=== PATIENT | female | born 1950 | race Caucasian/White ===

== ENCOUNTER → 2016-10-01 | Outpatient (CLI) | payer OTHER | LOC: FIMAGING 15:15 | PROVIDERS: ATTEND Internal Medicine | DX: Z12.31 Encounter for screening mammogram for malignant neoplasm of breast (principal); Z80.3 Family history of malignant neoplasm of breast | CPT/HCPCS: G0202 ==

== ENCOUNTER → 2017-04-14 | Outpatient (CLI) | payer OTHER | LOC: FIMAGING 14:18 | PROVIDERS: ATTEND Orthopaedic Surgery | DX: Z01.818 Encounter for other preprocedural examination (principal); M17.12 Unilateral primary osteoarthritis, left knee ==

== ENCOUNTER 2017-04-15 07:54 | Observation (INO) | payer OTHER ==
[~2017-04-15 07:54] MED LIST: ROPIVACAINE 0.2% 80 MG, EPINEPHrine 0.2 MG, KETOROLAC TROMETHAMINE 30 MG in SYRINGE 0 ML IU ONE; TRANEXAMIC ACID 3,000 MG in NS 50 ML IRR ONE
[2017-04-15] MEDS ORDERED: ceFAZolin 2 GM/SWFI 2 GM/20 ML SYR IVP ONE (08:31)
[2017-04-15] MEDS ORDERED: ACETAMINOPHEN 325 MG TAB PO ONE (08:31)
[2017-04-15] MEDS ORDERED: FAMOTIDINE 20 MG TAB PO ONE (08:31)
[2017-04-15] MEDS ORDERED: DEXAMETHASONE 4 MG/ML VIAL IVP ONE (08:31)
[2017-04-15] MEDS ORDERED: LR 1,000 ML IV ONE (08:45)
[2017-04-15] MEDS ORDERED: LIDOCAINE 1% 2 ML INJ ID PRN (08:45)
[2017-04-15] MEDS ORDERED: VANCOMYCIN 1 GM VIAL ONE (08:58)
[2017-04-15] MEDS ORDERED: TRANEXAMIC ACID 3,000 MG/50 ML BAG IRR ONE (08:58)
--- NOTE | 2017-04-15 09:24 | PDHPUP ---
History & Physical Update H&P update statement: This history and physical update is based on an assessment of the patient which was completed after admission or registration (within 24 hours), but prior to the surgery/procedure. H&P update: H&P reviewed & patient examined, no change in patient's condition since H&P completed
[2017-04-15] MEDS ORDERED: MIDAZOLAM 2 MG/2 ML VIAL IVP ONE (09:59)
[2017-04-15] MEDS ORDERED: MIDAZOLAM 2 MG/2 ML VIAL ONE (10:00)
--- NOTE | 2017-04-15 10:00 | PDANEPAE ---
ANE History of Present Illness l knee oa ANE Past Medical History - Cardiovascular History Hx Hypertension: No Hx Arrhythmias: No Hx Chest Pain: No Hx Coronary Artery / Peripheral Vascular Disease: No Hx CHF / Valvular Disease: No Hx Palpitations: No Cardiovascular History Comment: hyperlipidemia. cardiac cath d/t chest pain that proved to be normal- pain was from lifting hay bails - Pulmonary History Hx COPD: No Hx Asthma/Reactive Airway Disease: No Hx Recent Upper Respiratory Infection: No Hx Oxygen in Use at Home: No Hx Sleep Apnea: No Sleep Apnea Screening Result - Last Documented: Negative - Neurologic History Hx Cerebrovascular Accident: No Hx Seizures: No Hx Dementia: No Neurologic History Comment: hx of spinal fusion - Endocrine History Hx Diabetes: No Hypothyroid: Yes Endocrine History Comment: hypothyroidism started on synthroid 6 weeks ago - Renal History Hx Renal Disorders: No - Liver History Hx Hepatic Disorders: No - Neurological & Psychiatric Hx Hx Neurological and Psychiatric Disorders: Yes Neurological / Psychiatric History Comment: depression - Cancer History Hx Cancer: Yes Cancer History Comment: skin- basal cell - Congenital Disorder History Hx Congenital Disorders: No - GI History Hx Gastrointestinal Disorders: Yes Gastrointestinal History Comment: reflux- takes omeprazole at night - Other Health History Other Health History: wears glasses. wears bilateral hearing aides. osteoarthritis in all joints - Chronic Pain History Chronic Pain: Yes (bilateral knees) - Surgical History Prior Surgeries: bilateral RTC repairs. spinal fusion l4-5, s1. appy and emily. bilateral cataracts. cardiac cath- with normal results. hysterectomy. t&a. rhinoplasty at 18 yo ANE Review of Systems Review of Systems: - Exercise capacity METS (RN): 4 METS ANE Patient History - Allergies Allergies/Adverse Reactions: latex [Latex] Allergy (Mild, Verified 04/15/17 09:36) Rash - Home Medications Home Medications: Atorvastatin Calcium [Lipitor 20 mg (*)] 20 mg PO HS 03/09/17 [Last Taken 21:00] FLUoxetine [Prozac 20 MG (*)] 20 mg PO HS 03/09/17 [Last Taken 04/14/17 21:00] Levothyroxine [Synthroid 25 mcg (*)] 25 mcg PO DAILY06 03/09/17 [Last Taken 21:00] Omeprazole [Prilosec 20 mg] 20 mg PO HS 03/09/17 [Last Taken 04/14/17 21:00] celeCOXIB [Celebrex (*)] 200 mg PO DAILY 03/09/17 [Last Taken 04/14/17 21:00] - NPO status NPO Status: no food or drink >8 hours NPO Since - Liquids (Date): 04/15/17 NPO Since - Liquids (Time): 06:00 NPO Since - Solids (Date): 04/14/17 NPO Since - Solids (Time): 20:30 - Smoking Hx Smoking Status: Former smoker - Family Anes Hx Family Hx Anesthesia Complications: none ANE Labs/Vital Signs - Vital Signs Vital Signs: reviewed preoperatively; see RN documention for details Blood Pressure: 134/65 Heart Rate: 66 Respiratory Rate: 14 O2 Sat (%): 92 Height: 175.26 cm Weight: 90.718 kg ANE Physical Exam - Airway Neck exam: FROM Mallampati Score: Class 2 Mouth exam: normal dental/mouth exam - Pulmonary Pulmonary: no respiratory distress - Cardiovascular Cardiovascular: regular rate and rhythym - ASA Status ASA Status: II ANE Anesthesia Plan Anesthesia Plan: GA w LMA, spinal Regional Anesthesia: adductor canal FNB
[2017-04-15] MEDS ORDERED: PROPOFOL/EMULSION 500 MG/50 ML BOTTLE IV ONE (10:09)
[2017-04-15] MEDS ORDERED: ONDANSETRON 4 MG/2 ML VIAL ONE (10:11)
[2017-04-15] MEDS ORDERED: ROPIVACAINE HCL 150 MG/30 ML INJ ONE (10:11)
[2017-04-15] MEDS ORDERED: DEXAMETHASONE 4 MG/ML VIAL ONE (10:11)
[2017-04-15] MEDS ORDERED: HYDROmorphONE/DILAUDID 1 MG/ML INJ IVP PRN (10:45)
[2017-04-15] MEDS ORDERED: DEXAMETHASONE 4 MG/ML VIAL IVP PRN (10:45)
[2017-04-15] MEDS ORDERED: ONDANSETRON 4 MG/2 ML VIAL IVP PRN ×2 (10:45→11:33)
[2017-04-15] MEDS ORDERED: NALOXONE HCL 0.4 MG/ML INJ IVP PRN (10:45)
[2017-04-15] MEDS ORDERED: fentaNYL 100 MCG/2 ML INJ IVP PRN (10:45)
[2017-04-15] MEDS ORDERED: ONDANSETRON DISINTEGRATING 4 MG TAB PO PRN (11:33)
[2017-04-15] MEDS ORDERED: CYCLOBENZAPRINE 10 MG TAB PO PRN (11:33)
[2017-04-15] MEDS ORDERED: LACTULOSE 20 GM/30 ML UDCUP PO PRN (11:33)
[2017-04-15] MEDS ORDERED: diphenhydrAMINE 25 MG CAP PO PRN (11:33)
[2017-04-15] MEDS ORDERED: METOCLOPRAMIDE 10 MG/2 ML VIAL IVP PRN (11:33)
[2017-04-15] MEDS ORDERED: PROMETHAZINE HCL 25 MG/ML INJ IVP PRN (11:33)
[2017-04-15] MEDS ORDERED: TEMAZEPAM 15 MG CAP PO PRN (11:33)
[2017-04-15] MEDS ORDERED: PROMETHAZINE HCL 25 MG SUPPR PR PRN (11:33)
[2017-04-15] MEDS ORDERED: POLYETHYLENE GLYCOL 3350 17 GM PKT PO PRN (11:33)
[2017-04-15] MEDS ORDERED: DIPHENOXYLATE/ATROPINE LOMOTIL 1 TAB PO PRN (11:33)
[2017-04-15] MEDS ORDERED: BISACODYL 10 MG SUPP PR PRN (11:33)
[2017-04-15] MEDS ORDERED: MAGNESIUM HYDROXIDE 30 ML UDCUP PO PRN (11:33)
--- NOTE | 2017-04-15 11:34 | POSTOPPROG ---
Post Op Note Date of Operation: 04/15/17 Surgeon: Yuliya Jose Loan Approver: poonam jose Anesthesiologist: dr. regalado Anesthesia: Spinal, Other (Specify) (adductor canal block) Pre-op Diagnosis: L knee OA Post-op Diagnosis: same Indication: left knee pain due to OA that failed conservative measures Procedure: L TKA robot assisted Findings: severe knee OA Inf/Abcess present in the surg proc area at time of surgery?: No EBL: 50-100
--- NOTE | 2017-04-15 11:47 | POSTANESTH ---
Post Anesthetic Evaluation Cardiovascular Status: Normal, Stable Respiratory Status: Normal, Stable Level of Consciousness/Mental Status: Can Participate in Eval Pain Control: Adequate, Prn Tx Ordered Nausea/Vomiting Control: Adequate, Prn Tx Ordered Complications Possibly Related to Anesthesia: None Noted
[2017-04-15] MEDS ORDERED: LR 1,000 ML IV SCH (12:00)
[2017-04-15] MEDS: ACETAMINOPHEN 325 MG TAB PO SCH ×3 (14:26→22:26)
[2017-04-15] MEDS: ceFAZolin 2 GM/DEXTROSE 100 ML IV SCH (18:23)
[2017-04-15] MEDS: SENNOSIDES/DOCUSATE SODIUM TAB PO SCH (20:04)
[2017-04-15] MEDS: ASPIRIN 81 MG CHEWABLE TAB PO SCH (20:04)
[2017-04-15] MEDS: FAMOTIDINE 20 MG TAB PO SCH (20:06)
[2017-04-15] MEDS ORDERED: FLUoxetine 20 MG CAP PO SCH (21:00)
[2017-04-15] MEDS ORDERED: ATORVASTATIN CALCIUM 20 MG TAB PO SCH (21:00)
[2017-04-15] MEDS ORDERED: PANTOPRAZOLE SODIUM 40 MG TAB PO SCH (21:00)
[2017-04-15] MEDS ORDERED: NON-FORMULARY NEW DRUG (Omeprazole [Prilosec 20 Mg] 20 MG) PO SCH (21:00)
[2017-04-16] MEDS: ceFAZolin 2 GM/DEXTROSE 100 ML IV SCH (02:36)
--- NOTE | 2017-04-16 03:04 | GOP ---
[f rep st] OPERATIVE REPORT DATE OF OPERATION: 04/15/2017 SURGEON: Joss Schmid MD SOC ANALYST: YO Caldwell ANESTHESIA: Spinal. PREOPERATIVE DIAGNOSIS: Left knee osteoarthritis. POSTOPERATIVE DIAGNOSIS: Left knee osteoarthritis. PROCEDURE PERFORMED: Left total knee arthroplasty with computer navigation, robotic assist. FINDINGS: ESTIMATED BLOOD LOSS: 30 cc. INDICATIONS: The patient is a 66-year-old female with severe and progressive pain and deformity of the left knee unresponsive to conservative care. The risks and benefits of surgical intervention were explained in detail. DESCRIPTION OF PROCEDURE: The patient was brought to the operative room and placed on the table in the supine position. Spinal anesthesia was induced without difficulty. A pneumatic tourniquet was applied about the left proximal thigh, and the leg was prepped and draped in a sterile fashion. The leg orona was applied. After exsanguination by elevation the tourniquet was inflated to 275 mm of mercury. Incision was made anterior medial from the tibial tuberosity to a point 2 cm proximal to the superior pole of the patella. Medial parapatellar arthrotomy was carried out from the superior pole of the patella and posteriorly in line with the fibers of the Type II VMO. The medial collateral ligament was elevated and the infrapatellar fat pad was resected. The patella was everted and the articular surface was excised. A 32 mm patellar button was placed. Attention was turned first to the distal aspect of the left femur. At 3 cm proximal to the medial rise of the femur, 2 percutaneous half pins were placed for fixation of the femoral array. In a similar fashion, 2 pins were placed anteromedial on the tibia for fixation of the tibial array. External land marking and registration of the hip center was performed without difficulty. Internal femoral and tibial registration was carried out without difficulty and the femoral and tibial checkpoints were placed and verified for accuracy. Attention was turned to the femur. The foot print for the size 4 femoral component was cut with the saw using the [employer] robotic system and verified for accuracy against the CT based plan. In a similar fashion, saw was used to cut the footprint for the size 3 tibial component using the [employer] system and verified for accuracy against the CT based plan. The tibial articular surface was excised without difficulty, followed by the intercondylar box cut. The knee was extended and the remnants of the medial and lateral meniscus were excised. The posterior capsule was injected with ropivacaine, epinephrine and Toradol. A size3 tritanium tibial tray was positioned. Trial reduction was then carried out. There was excellent range of motion, alignment, and stability using the 9 mm polyethylene. All trials were then removed. The joint was thoroughly irrigated and carefully dried. The press fit components were implanted. The permanent 9 mm polyethylene was placed without difficulty. The tourniquet was deflated and all bleeders were coagulated. The wound was thoroughly irrigated and closed using interrupted sutures of 2-0 Vicryl for the joint capsule. The subcu was closed with 3-0 Vicryl and the skin with 4-0 Monocryl. Dermabond and Steri-Strips were applied followed by a compressive dressing. The patient was then moved from the operating room to the recovery room in good condition, having tolerated the procedure well. PATHOLOGY: Severe medial and patellofemoral osteoarthritis. /[id number]/MODL MTDD
[2017-04-16 04:55] VITALS: RESP 16
[2017-04-16] MEDS: ACETAMINOPHEN 325 MG TAB PO SCH (05:03)
[2017-04-16] MEDS: oxyCODONE IR 5 MG TAB PO PRN ×2 (05:52→09:01)
[2017-04-16] MEDS ORDERED: LEVOTHYROXINE 25 MCG TAB PO SCH (06:00)
[2017-04-16] MEDS: FAMOTIDINE 20 MG TAB PO SCH (08:07)
[2017-04-16] MEDS: ASPIRIN 81 MG CHEWABLE TAB PO SCH (08:07)
[2017-04-16] MEDS: SENNOSIDES/DOCUSATE SODIUM TAB PO SCH (08:08)
[2017-04-16 08:53] VITALS: BP 104/61; PULSE 70; TEMP 98; O2SAT 92
--- NOTE | 2017-04-16 10:12 | SOAPPROG ---
SOAP Progress Note Assessment/Plan: Assessment: Patient is doing well POD 1 s/p L TKA Pain management: pain is well controlled on oral pain meds. VTE ppx: recommend aspirin 81mg BID for 4 weeks, cont RIRI and SCDs Anemia: level is expected initially postop. Asymptomatic. Continue to monitor D/c planning: d/c to home today pending release from PT Plan: 04/16/17 10:11 Subjective: Shawnee is doing well today, denies SOB, chest pain and N/V. Objective: Vital Signs Temp Pulse Resp BP Pulse Ox 36.7 C 70 16 104/61 92 04/16/17 08:53 04/16/17 08:53 04/16/17 08:53 04/16/17 08:53 04/16/17 08:53 Laboratory Results 04/16/17 04:51 04/15/17 04/16/17 04/17/17 05:59 05:59 05:59 Intake Total 2200 Output Total 1280 Balance 920 LLE: incision dressing is clean and dry, NVI, +pf/df ICD10 Worksheet Patient Problems: Problems Problem Status Onset Primary localized osteoarthritis of left knee Acute
--- NOTE | 2017-04-16 13:16 | GDS ---
[f rep st] DISCHARGE SUMMARY ADMISSION DIAGNOSIS: Left knee osteoarthritis. DISCHARGE DIAGNOSIS: Left knee osteoarthritis. PROCEDURE: Left total knee arthroplasty, robot-assisted VTE PROPHYLAXIS: Aspirin 81 mg twice daily for 4 weeks recommended BRIEF DESCRIPTION OF HOSPITAL STAY: Patient was admitted for an elective joint arthroplasty. The pat ient tolerated the procedure well and has passed physical therapy. The patient was given appropriate antibiotic prophylaxis and venous thromboembolism prophylaxis. The patient's pain was well controlled on oral pain medication, patient was holding down food, and had urinated. Decision was made to disch arge the patient. The patient was given post-operative prescriptions pre-operatively. PLAN: Followup as scheduled April 30 at 11:15 a.m. /[id number]/MODL
--- NOTE | 2017-04-16 14:01 | ASDISCHSUM ---
Discharge Information Plan Status:Home with No Needs Medically Cleared to Leave: Discharge Date:04/16/2017 10:59 AM CM D/C Disposition:Home, Routine, Self-Care ADT D/C Disposition:Home, Routine, Self-Care Projected Discharge Date:04/16/2017 10:59 AM Transportation at D/C: Discharge Delay Reason: Follow-Up Date:04/16/2017 10:59 AM Discharge Slot: Final Diagnosis: Placement Information Patient Contact Information Contact Name:KARLY Relationship:Friend Address:[address] [place] [address] City:[place] [facility] Phone: [facility]/Zip Code:[place] [address] Email: Financial Information Financial Class:HMO and PPO Plans Primary Plan Desc:LIZETH ARANA PPO [employer] Primary Plan Number:[id number] Secondary Plan Desc: Secondary Plan Number: Assessment Information Intervention Information
== END 2017-04-16 10:59 | disposition home or self-care (01) ==
LOC: F3N 07:54 → INTOOBSV 07:54 → F3N 13:01
PROVIDERS: ADMIT Orthopaedic Surgery; ATTEND Orthopaedic Surgery
DX: M17.12 Unilateral primary osteoarthritis, left knee (principal); E78.5 Hyperlipidemia, unspecified; K21.9 Gastro-esophageal reflux disease without esophagitis; Z98.1 Arthrodesis status
CPT/HCPCS: 27447; 73560; 97110; 97116; 97161; 97165; 97530; G0378; G8978; G8979; G8980; J0171; J0690; J1100; J1885; J2250; J2405; J2704; J2795; J3370

== ENCOUNTER → 2017-07-13 | Outpatient (CLI) | payer OTHER | LOC: FIMAGING 12:46 | PROVIDERS: ATTEND Orthopaedic Surgery | DX: M17.11 Unilateral primary osteoarthritis, right knee (principal) ==

== ENCOUNTER 2017-07-22 10:56 | Observation (INO) | payer OTHER ==
[~2017-07-22 10:56] MED LIST changes: +BUPI/epINEPH/KETOROLAC IU ONE; +TRANEXAMIC ACID 3,000 MG in NS (SYRINGE) 50 ML IRR ONE; -TRANEXAMIC ACID 3,000 MG in NS 50 ML IRR ONE
[2017-07-22] MEDS ORDERED: ACETAMINOPHEN 325 MG TAB PO ONE (11:13)
[2017-07-22] MEDS ORDERED: ceFAZolin 2 GM/SWFI 2 GM/20 ML SYR IVP ONE (11:13)
[2017-07-22] MEDS ORDERED: FAMOTIDINE 20 MG TAB PO ONE (11:13)
[2017-07-22] MEDS ORDERED: DEXAMETHASONE 4 MG/ML VIAL IVP ONE (11:13)
[2017-07-22] MEDS ORDERED: LR 1,000 ML IV ONE (11:14)
[2017-07-22] MEDS ORDERED: LIDOCAINE 1% 2 ML INJ ID PRN (11:14)
[2017-07-22] MEDS ORDERED: MIDAZOLAM 2 MG/2 ML VIAL IVP ONE (12:36)
--- NOTE | 2017-07-22 12:37 | PDANEPAE ---
ANE History of Present Illness DJD R knee s/f R TKR china KARL Past Medical History - Cardiovascular History Hx Hypertension: No Hx Arrhythmias: No Hx Chest Pain: No Hx Coronary Artery / Peripheral Vascular Disease: No Hx CHF / Valvular Disease: No Hx Palpitations: No Cardiovascular History Comment: hyperlipidemia. cardiac cath d/t chest pain that proved to be normal- pain was from lifting hay bails 2011 - Pulmonary History Hx COPD: No Hx Asthma/Reactive Airway Disease: No Hx Recent Upper Respiratory Infection: No Hx Oxygen in Use at Home: No Hx Sleep Apnea: No Sleep Apnea Screening Result - Last Documented: Negative - Neurologic History Hx Cerebrovascular Accident: No Hx Seizures: No Hx Dementia: No Neurologic History Comment: hx of spinal fusion - Endocrine History Hx Diabetes: No Endocrine History Comment: hypothyroidism - Renal History Hx Renal Disorders: No - Liver History Hx Hepatic Disorders: No - Neurological & Psychiatric Hx Hx Neurological and Psychiatric Disorders: Yes Neurological / Psychiatric History Comment: depression - Cancer History Hx Cancer: Yes Cancer History Comment: skin - Congenital Disorder History Hx Congenital Disorders: No - GI History Hx Gastrointestinal Disorders: Yes Gastrointestinal History Comment: reflux- - Other Health History Other Health History: wears glasses. wears bilateral hearing aides. osteoarthritis in all joints - Chronic Pain History Chronic Pain: Yes (RT KNEE) - Surgical History Prior Surgeries: LT TOTAL KNEE 04/15/17. bilateral RTC repairs. spinal fusion l4-5, s1. appy and emily. bilateral cataracts. cardiac cath- with normal results. hysterectomy. t&a. rhinoplasty at 18 yo ANE Review of Systems Review of Systems: - Exercise capacity METS (RN): 4 METS ANE Patient History - Allergies Allergies/Adverse Reactions: latex [Latex] Allergy (Mild, Verified 04/15/17 09:36) Rash - Home Medications Home medications: home medication list seen and reviewed Home Medications: Atorvastatin Calcium [Lipitor 20 mg (*)] 20 mg PO HS 03/09/17 [Last Taken 23:00] FLUoxetine [Prozac 20 MG (*)] 20 mg PO HS 03/09/17 [Last Taken 07/21/17 23:00] Levothyroxine [Synthroid 25 mcg (*)] 25 mcg PO DAILY06 03/09/17 [Last Taken 09:30] Omeprazole [Prilosec 20 mg] 20 mg PO HS 03/09/17 [Last Taken 07/21/17 23:00] Acetaminophen [Tylenol 325mg (*)] 650 mg PO Q6HRS PRN 07/01/17 [Last Taken 07/20] Aspirin [Aspirin 81mg (*)] 81 mg PO HS 07/01/17 [Last Taken 07/18/17] Herbals/Supplements -Info Only 1 ea PO DAILY 07/01/17 [Last Taken 07/15/17] Multivitamins [Multivitamin (*)] 1 each PO DAILY 07/01/17 [Last Taken 07/15/17] - NPO status NPO Since - Liquids (Date): 07/22/17 NPO Since - Liquids (Time): 10:00 NPO Since - Solids (Date): 07/21/17 NPO Since - Solids (Time): 21:30 - Anes Hx Anes Hx: no prior problems - Smoking Hx Smoking Status: Former smoker - Alcohol Use Alcohol Use: Rarely - Family Anes Hx Family Anes Hx: none Family Hx Anesthesia Complications: none ANE Labs/Vital Signs - Vital Signs Blood Pressure: 162/99 Heart Rate: 79 Respiratory Rate: 16 O2 Sat (%): 94 Height: 173.99 cm Weight: 90.718 kg ANE Physical Exam - Airway Neck exam: FROM Mallampati Score: Class 2 Mouth exam: normal dental/mouth exam - Pulmonary Pulmonary: no respiratory distress - Cardiovascular Cardiovascular: regular rate and rhythym ANE Anesthesia Plan Anesthesia Plan: spinal Regional Anesthesia: adductor canal FNB
[2017-07-22] MEDS ORDERED: fentaNYL 100 MCG/2 ML INJ ONE (12:49)
[2017-07-22] MEDS ORDERED: PROPOFOL/EMULSION 500 MG/50 ML BOTTLE IV ONE (12:49)
[2017-07-22] MEDS ORDERED: DEXAMETHASONE 4 MG/ML VIAL ONE (12:51)
[2017-07-22] MEDS ORDERED: ONDANSETRON 4 MG/2 ML VIAL ONE (12:51)
[2017-07-22] MEDS ORDERED: POLYETHYLENE GLYCOL 3350 17 GM PKT PO PRN (13:26)
[2017-07-22] MEDS ORDERED: BISACODYL 10 MG SUPP PR PRN (13:26)
[2017-07-22] MEDS ORDERED: LACTULOSE 20 GM/30 ML UDCUP PO PRN (13:26)
[2017-07-22] MEDS ORDERED: CYCLOBENZAPRINE 10 MG TAB PO PRN (13:26)
[2017-07-22] MEDS ORDERED: PROMETHAZINE HCL 25 MG SUPPR PR PRN (13:26)
[2017-07-22] MEDS ORDERED: TEMAZEPAM 15 MG CAP PO PRN (13:26)
[2017-07-22] MEDS ORDERED: PROMETHAZINE HCL 25 MG/ML INJ IVP PRN ×2 (13:26→13:57)
[2017-07-22] MEDS ORDERED: ONDANSETRON DISINTEGRATING 4 MG TAB PO PRN (13:26)
[2017-07-22] MEDS ORDERED: diphenhydrAMINE 25 MG CAP PO PRN (13:26)
[2017-07-22] MEDS ORDERED: DIPHENOXYLATE/ATROPINE LOMOTIL 1 TAB PO PRN (13:26)
[2017-07-22] MEDS ORDERED: MAGNESIUM HYDROXIDE 30 ML UDCUP PO PRN (13:26)
[2017-07-22] MEDS ORDERED: ONDANSETRON 4 MG/2 ML VIAL IVP PRN ×2 (13:26→13:57)
[2017-07-22] MEDS ORDERED: LR 1,000 ML IV SCH (13:30)
[2017-07-22] MEDS ORDERED: PROPOFOL 200 MG/20 ML VIAL ONE (13:45)
[2017-07-22] MEDS ORDERED: METOCLOPRAMIDE 10 MG/2 ML VIAL IVP PRN (13:57)
[2017-07-22] MEDS ORDERED: oxyCODONE IR 5 MG TAB PO PRN (13:57)
[2017-07-22] MEDS ORDERED: PHENYLEPHRINE HCL 100 MCG/ML SYR IVP PRN (13:57)
[2017-07-22] MEDS ORDERED: ACETAMINOPHEN 500 MG TAB PO PRN (13:57)
[2017-07-22] MEDS ORDERED: MEPERIDINE 25 MG/ML SYR IVP PRN (13:57)
[2017-07-22] MEDS ORDERED: LR 500 ML IV PRN (13:57)
[2017-07-22] MEDS ORDERED: ALBUTEROL 3 ML DEYVIAL IH PRN (13:57)
[2017-07-22] MEDS ORDERED: DEXAMETHASONE 4 MG/ML VIAL IVP PRN (13:57)
[2017-07-22] MEDS ORDERED: HYDROCODONE/APAP 5/325 TAB PO PRN (13:57)
[2017-07-22] MEDS ORDERED: LABETALOL HCL 5 MG/ML 20 ML MDV IVP PRN (13:57)
[2017-07-22] MEDS ORDERED: NALOXONE HCL 0.4 MG/ML INJ IVP PRN (13:57)
[2017-07-22] MEDS ORDERED: fentaNYL 100 MCG/2 ML INJ IVP PRN (13:57)
[2017-07-22] MEDS ORDERED: ceFAZolin 2 GM/DEXTROSE 100 ML IV SCH (14:00)
--- NOTE | 2017-07-22 14:10 | POSTOPPROG ---
Post Op Note Date of Operation: 07/22/17 Surgeon: Yuliya Schmid Public Safety Dispatcher: Angie Schmid PAc Anesthesiologist: Mason Anesthesia: Spinal Pre-op Diagnosis: R knee DJD Post-op Diagnosis: same Indication: pain Procedure: R TKA with robotic assist and computer damián Findings: DJD knee Inf/Abcess present in the surg proc area at time of surgery?: No EBL: 50-100
--- NOTE | 2017-07-22 14:15 | POSTOPPROG ---
Post Op Note Date of Operation: 07/22/17 Surgeon: Yuliya Jose Jack Spooler Tender: poonam jose Anesthesiologist: dr. najera Anesthesia: Spinal, Other (Specify) (adductor canal block) Pre-op Diagnosis: right knee OA Post-op Diagnosis: same Indication: right knee pain Procedure: R TKA robot assisted Findings: severe knee OA Inf/Abcess present in the surg proc area at time of surgery?: No EBL: 50-100
[2017-07-22] MEDS: ACETAMINOPHEN 325 MG TAB PO SCH ×2 (18:40→23:39)
[2017-07-22] MEDS: ceFAZolin 2 GM/SWFI 2 GM/20 ML SYR IVP SCH (18:41)
[2017-07-22] MEDS: oxyCODONE IR 5 MG TAB PO PRN ×3 (18:41→23:39)
[2017-07-22] MEDS: SENNOSIDES/DOCUSATE SODIUM TAB PO SCH (20:13)
[2017-07-22] MEDS: ASPIRIN 81 MG CHEWABLE TAB PO SCH (20:13)
[2017-07-22] MEDS: FAMOTIDINE 20 MG TAB PO SCH (20:13)
[2017-07-22] MEDS ORDERED: PANTOPRAZOLE SODIUM 40 MG TAB PO SCH (21:00)
[2017-07-22] MEDS ORDERED: FLUoxetine 20 MG CAP PO SCH (21:00)
[2017-07-22] MEDS ORDERED: NON-FORMULARY NEW DRUG (Omeprazole [Prilosec 20 Mg] 20 MG) PO SCH (21:00)
[2017-07-22] MEDS ORDERED: ATORVASTATIN CALCIUM 20 MG TAB PO SCH (21:00)
[2017-07-23] MEDS: ceFAZolin 2 GM/SWFI 2 GM/20 ML SYR IVP SCH (03:36)
[2017-07-23] MEDS ORDERED: LEVOTHYROXINE 25 MCG TAB PO SCH (06:00)
[2017-07-23] MEDS: ACETAMINOPHEN 325 MG TAB PO SCH (06:05)
[2017-07-23] MEDS: oxyCODONE IR 5 MG TAB PO PRN ×2 (06:05→10:59)
[2017-07-23] MEDS: SENNOSIDES/DOCUSATE SODIUM TAB PO SCH (07:45)
[2017-07-23] MEDS: FAMOTIDINE 20 MG TAB PO SCH (07:45)
[2017-07-23] MEDS: ASPIRIN 81 MG CHEWABLE TAB PO SCH (07:46)
[2017-07-23 07:49] VITALS: BP 138/69
--- NOTE | 2017-07-23 09:07 | SOAPPROG ---
SOAP Progress Note Assessment/Plan: Assessment: Patient is doing well POD 1 s/p R TKA Pain management: pain is well controlled on oral pain meds. VTE ppx: recommend aspirin 81 mg BID for 4 weeks, cont RIRI and SCDs Anemia: level is expected initially postop. Asymptomatic. Continue to monitor D/c planning: d/c to home today pending release from PT Plan: 07/23/17 09:06 Subjective: Annemarie is doing well today, denies SOB, chest pain and n/v. states mod pain, but well controlled on oral pain meds Objective: Vital Signs Temp Pulse Resp BP Pulse Ox 36.7 C 65 16 138/69 H 93 07/23/17 07:48 07/23/17 07:48 07/23/17 07:48 07/23/17 07:48 07/23/17 07:48 Laboratory Results 07/23/17 04:42 07/22/17 07/23/17 07/24/17 05:59 05:59 05:59 Intake Total 3535 Output Total 3375 500 Balance 160 -500 RLE: incision dressing is clean and dry, NVI, +pf/df ICD10 Worksheet Patient Problems: Problems Problem Status Onset Primary localized osteoarthritis of right knee Acute Primary localized osteoarthritis of left knee Acute
--- NOTE | 2017-07-23 09:54 | GDS ---
[f rep st] DISCHARGE SUMMARY ADMISSION DIAGNOSIS: Right knee osteoarthritis. DISCHARGE DIAGNOSIS: Right knee osteoarthritis. PROCEDURE: Right total knee arthroplasty. VTE PROPHYLAXIS: Recommend aspirin twice daily for a month. BRIEF DESCRIPTION OF HOSPITAL STAY: Patient was admitted for an elective joint arthroplasty. The pa tient tolerated the procedure well and has passed physical therapy. The patient was given appropriat e antibiotic prophylaxis and venous thromboembolism prophylaxis. The patient's pain was well control led on oral pain medication, patient was holding down food, and had urinated. Decision was made to d ischarge the patient. The patient was given post-operative prescriptions pre-operatively. PLAN: Follow up as scheduled at Dr. Schmid's office August 10 at 11:15. /[id number]/MODL
--- NOTE | 2017-07-23 10:14 | GOP ---
[f rep st] OPERATIVE REPORT DATE OF OPERATION: 07/22/2017 SURGEON: Joss Schmid MD GIRL FRIDAY: Angie Schmid, YO. ANESTHESIA: Spinal. PREOPERATIVE DIAGNOSIS: Right knee osteoarthritis. POSTOPERATIVE DIAGNOSIS: Right knee osteoarthritis. PROCEDURE PERFORMED: Right total knee arthroplasty with computer navigation, robotic assist. FINDINGS: ESTIMATED BLOOD LOSS: 30 cc. INDICATIONS: The patient is a 66-year-old female with severe and progressive pain and deformity of t he right knee unresponsive to conservative care. The risks and benefits of surgical intervention wer e explained in detail. DESCRIPTION OF PROCEDURE: The patient was brought to the operative room and placed on the table in t he supine position. Spinal anesthesia was induced without difficulty. A pneumatic tourniquet was appl ied about the right proximal thigh, and the leg was prepped and draped in a sterile fashion. The leg orona was applied. After exsanguination by elevation the tourniquet was inflated to 250 mmHg. Incision was made anterior medial from the tibial tuberosity to a point 2 cm proximal to the superior pole of the patella. Medial parapatellar arthrotomy was carried out from the superior pole of the pa tella and posteriorly in line with the fibers of the Type II VMO. The medial collateral ligament was elevated and the infrapatellar fat pad was resected. The patella was everted and the articular surface was excised. A 32 mm patellar button was placed. Attention was turned first to the distal aspect of the femur. After exposure of the femur, 2 half pi ns were placed for fixation of the femoral array. In a similar fashion, 2 pins were placed anteromed ial on the tibia for fixation of the tibial array. External land marking and registration of the hip center was performed without difficulty. Internal femoral and tibial registration was carried out w ithout difficulty and the femoral and tibial checkpoints were placed and verified for accuracy. Attention was turned to the femur. The foot print for the size 4 femoral component was cut with the saw using the [employer] robotic system and verified for accuracy against the CT based plan. In a similar f ashion, the saw was used to cut the footprint for the size 4 tibial component using the [employer] system an d verified for accuracy against the CT based plan. The tibial articular surface was excised without d ifficulty, followed by the intercondylar box cut. The knee was extended and the remnants of the medial and lateral meniscus were excised. The posterior capsule was injected with ropivacaine, epinephrine and Toradol. A size 4 tibial tray was positioned . Trial reduction was then carried out. There was excellent range of motion, alignment, and stability using the 4 x 11 mm polyethylene. All trials were then removed. The joint was thoroughly irrigated and carefully dried. The X3 press-fi t components were implanted. The permanent 11 mm polyethylene was placed without difficulty. The tourniquet was deflated and all bleeders were coagulated. The wound was thoroughly irrigated and closed using interrupted sutures of 2-0 Vicryl for the joint capsule. The subcu was closed with 3-0 V icryl and the skin with 4-0 Monocryl. Dermabond and Steri-Strips were applied followed by a compress atif dressing. The patient was then moved from the operating room to the recovery room in good conditi on, having tolerated the procedure well. PATHOLOGY: Severe medial patellofemoral osteoarthritis. /[id number]/MODL
== END 2017-07-23 11:19 | disposition home or self-care (01) ==
LOC: F3N 10:56
PROVIDERS: ADMIT Orthopaedic Surgery; ATTEND Orthopaedic Surgery
PROC: 0SRC0JZ Replacement of Right Knee Joint with Synthetic Substitute, Open Approach (ICD-10-PCS; principal; 2017-07-22 13:15)
DX: M17.11 Unilateral primary osteoarthritis, right knee (principal)
CPT/HCPCS: 27447; 73560; 97116; 97161; 97165; G0378; J0171; J0690; J1100; J1885; J2250; J2370; J2405; J2704; J3010

== ENCOUNTER → 2017-10-21 | Outpatient (CLI) | payer OTHER | LOC: FIMAGING 13:45 | PROVIDERS: ATTEND Internal Medicine | DX: Z12.31 Encounter for screening mammogram for malignant neoplasm of breast (principal); Z80.3 Family history of malignant neoplasm of breast ==